=== PATIENT | female | born 1955 | race African-American/Black ===

== ENCOUNTER 2017-02-13 00:35 | Inpatient (IN) | payer MEDICARE ==
[2017-02-13 01:52] LABS: #Eosinphils 0.1 thou/uL (0.0-0.7); #Lymphocytes 2.2 thou/uL (1.20-3.40); #Monocytes 0.4 thou/uL (0.11-0.59); #Neutrophils 3.3 thou/uL (1.40-6.50); %Basophils 0.1 % (0.0-1.0); %Lymphocytes 36.1 % (21.0-51.0); %Monocytes 6.9 % (0.0-10.0); Hematocrit 37.8 % (36.0-47.0); Mean Platelet Volume 8.7 fL (7.4-10.4)
--- NOTE | 2017-02-13 03:55 | HP ---
DATE OF ADMISSION: 02/13/2017 PRIMARY CARE PHYSICIAN: Angelica Pedersen M.D. CODE STATUS: FULL CODE. CHIEF COMPLAINT: Abdominal discomfort with lower GI bleeding. HISTORY OF PRESENT ILLNESS: The patient is a 61-year-old female with diverticulosis, followed by Dr. Regulo Sheehan presented to the Emergency Room at [place] with bleeding per rectum that started yesterd ay morning. Over the last 12 hours, the patient developed abdominal discomfort followed by diarrhea. The first 3 episodes of diarrhea were watery without any blood. She then had 2 to 3 more episodes of diarrhea w hich had jose alejandro blood mixed with small amount of stool. The abdominal pain was crampy, intermittent, without any aggravating or relieving factor. She denied any nausea or vomiting. She felt lightheade d, dizzy without any syncope. No chest pain, palpitations, recent antibiotic use or fever reported. She had intermittent chills. She denies recent antibiotic use. In the Emergency Room at [place], her initial vital signs showed temperature 97.7, respiration of 18 , pulse rate of 77 with blood pressure 197/88 with O2 saturation 98% on room air. She received 500 m L of normal saline in the emergency room and was transferred to this facility. The case was discusse d with GI investigation manager Dr. Morel by the ER physician at [place]. PAST MEDICAL HISTORY: 1. Diverticulosis followed by Dr. Sheehan. 2. Hypertension. 3. Diabetes mellitus type 2. 4. History of rheumatoid arthritis. 5. Depression. 6. Hyperlipidemia. 7. Coronary artery disease, status post stent placement. PAST SURGICAL HISTORY: 1. Colonoscopy in the last 5 years per patient report, she is unable to recall the details. 2. Total abdominal hysterectomy with single oophorectomy. 3. Tubal ligation. ALLERGIES: The patient is allergic to SULFA. CURRENT HOME MEDICATIONS: The patient takes aspirin 81 mg daily. She is unable to recall the names and dosing of other medications. Per ER record, she is on hydrochlorothiazide, verapamil, lisinopril , glipizide, gabapentin, atenolol, Lipitor, and estradiol. SOCIAL HISTORY: The patient currently lives at home. No smoking, alcohol or drug use. She is indep endent of activities of daily living. She lives in [place]. FAMILY HISTORY: Mother at 49 after cardiac arrest. REVIEW OF SYSTEMS: The following complete review of systems was negative, unless otherwise mentioned in the HPI or below: Constitutional: Weight loss or gain, ability to conduct usual activities. Skin: Rash, itching. Eyes: Double vision, pain. ENT/Mouth: Nose bleeding, neck stiffness, pain, tenderness. Cardiovascular: Palpitations, dyspnea on exertion, orthopnea. Respiratory: Shortness of breath, wheezing, cough, hemoptysis, fever or night sweats. Gastrointestinal: Poor appetite, abdominal pain, heartburn, nausea, vomiting, constipation, or diarr hea. Genitourinary: Urgency, frequency, dysuria, nocturia. Musculoskeletal: Pain, swelling. Neurologic/Psychiatric: Anxiety, depression. Allergy/Immunologic: Skin rash, bleeding tendency. PHYSICAL EXAMINATION: VITAL SIGNS: As discussed above. GENERAL: A 61-year-old female in no apparent distress. No new episodes of GI bleeding since transfe r to this facility. HEENT: Head atraumatic, normocephalic. Sclerae anicteric. Moist mucous membrane, no oral lesion. Conjunctiva was slightly pale. NECK: Supple, no JVD, no carotid bruit. LUNGS: Clear to auscultation bilaterally. No wheezing or rales. HEART: S1, S2 present. Regular rate and rhythm. No heaves or pulsation. There were no significant murmurs noted. ABDOMEN: Soft, mild generalized tenderness mainly in the periumbilical region without any rebound, g uarding, no costovertebral angle tenderness. EXTREMITIES: No edema or calf tenderness. NEUROLOGIC: Grossly nonfocal, moves all four extremities. PSYCHIATRY: Alert, awake, oriented x3. SKIN: Warm and dry. LYMPH NODES: No palpable lymph nodes in the neck. PERIPHERAL VASCULAR: Radial pulses palpable bilaterally. MUSCULOSKELETAL: No joint swelling or tenderness. LABORATORY FINDINGS: CBC showed WBC of 6 with hemoglobin 13.4 at [place] and 13 at this facility, p latelet 177. PT, INR, PTT normal range. Chemistries showed sodium 137, potassium 3.8, chloride 103, bicarbonate 22, BUN 16, creatinine 1.071, glucose of 127. Stool for occult blood at [place] was po sitive. CT scan of the abdomen and pelvis by my review was consistent with diverticulitis. There wa s mild pelvic free fluid. Telemetry monitoring by my review showed sinus rhythm. IMPRESSION: 1. Acute diverticulitis. 2. Lower gastrointestinal bleeding secondary to #1. 3. Chronic kidney disease stage 2. 4. Diabetes mellitus type 2. 5. Hypertension. 6. Coronary artery disease, status post stent. 7. Hypertension, uncontrolled. 8. Hyperlipidemia. 9. History of rheumatoid arthritis. 10. Depression without any suicidal ideation. PLAN: The patient will be monitored on the medical floor. We will monitor H and H closely. Empiric antibiotics will be started. Dr. Sheehan will be consulted. Stool workup will be sent. Control blood pressure. Resume home medications once confirmed. Add p.r.n. antihypertensives. Consult dietitian for education on diverticular diet. Plan of care was discussed with the patient. She stated understanding. The patient will require 2 to 3 days for stabilization. Sliding scale for diabetes. Hold aspirin fo r now.
[2017-02-13] MEDS ORDERED: Ondansetron HCl/PF 4 MG/2 ML Vial IVP PRN (04:10)
[2017-02-13] MEDS ORDERED: Eucerin (Mineral Oil/Petrolatum,White) 30 gm Jar TOP PRN (04:10)
[2017-02-13] MEDS ORDERED: Insulin Regular 300 UNITS/3 ML VIAL SC PRN ×2 (04:10)
[2017-02-13] MEDS ORDERED: Calcium Carbonate 500 MG ChewTAB PO PRN (04:10)
[2017-02-13] MEDS ORDERED: Dextrose 5% in Water 1,000 ML IV PRN (04:10)
[2017-02-13] MEDS ORDERED: hydrALAZINE 20 MG/ML VIAL SLOW IVP PRN (04:10)
[2017-02-13] MEDS ORDERED: Dextrose 50% Abboject 50 ML SYRINGE SLOW IVP PRN (04:10)
[2017-02-13] MEDS ORDERED: Labetalol HCl 100 MG/20 ML VIAL SLOW IVP PRN (04:10)
[2017-02-13] MEDS ORDERED: Ondansetron ODT 4 MG TAB PO PRN (04:10)
[2017-02-13] MEDS ORDERED: Loratadine 10 MG TAB PO PRN (04:10)
[2017-02-13 04:26] VITALS: BMI 34.8
[2017-02-13 04:50] LABS: Iron 44 ug/dL (50-170)
[2017-02-13 07:20] LABS: Hematocrit 36.4 % (36.0-47.0)
--- NOTE | 2017-02-13 07:23 | CT ---
PRELIMINARY REPORT/[facility]/EMERGENCY AFTER HOURS PROCEDURE: EXAM: CT Abdomen and Pelvis With Intravenous Contrast EXAM DATE/TIME: 02/13/2017 1:43 AM CLINICAL HISTORY: 61 years old, female; Pain; Abdominal pain; Generalized; Prior surgery; Patient HX: Betina presents to e d as transfer from another facility for gi bleed. Pt reports sudden onset at 5am. Pt reports abdominal cramping and reports more than 10 episodes of bloody bowel movements. Pt denies HX of orquidea lar symptoms. Pt reports having a colonoscopy in 2011 and reports everything "was good". Pt denies re cent antibiotic use or recent travel. Pt denies any urinary symptoms, fever, chest pain, or SOB. TECHNIQUE: Axial computed tomography images of the abdomen and pelvis with intravenous contrast. Coronal reformatted images were created and reviewed. CONTRAST: 95 mL of isovue 370 administered intravenously. COMPARISON: No relevant prior studies available. FINDINGS: Lower thorax: No acute findings. ABDOMEN: Liver: Subcentimeter hepatic hypodensity, suspect cyst. Gallbladder and bile ducts: Unremarkable. No calcified stones. No ductal dilation. Pancreas: Unremarkable. No mass. No ductal dilation. Spleen: Unremarkable. No splenomegaly. Adrenals: Unremarkable. No mass. Kidneys and ureters: Unremarkable. No solid mass. No hydronephrosis. Stomach and bowel: Mild-moderate descending colonic wall thickening and inhomogeneity of the paracoli c fat. No obstruction. Appendix: Visualized portions of appendix appear normal. PELVIS: Bladder: Unremarkable. No mass. Reproductive: Uterus is not identified. ABDOMEN and PELVIS: Intraperitoneal space: Mild pelvic free fluid. No free air. Bones/joints: Chronic degenerative changes of the lumbar spine. No acute fracture. No dislocation. Soft tissues: Unremarkable. Vasculature: Chronic atherosclerotic calcification of the vasculature. No abdominal aortic aneurysm. Lymph nodes: Unremarkable. No enlarged lymph nodes. IMPRESSION: 1. Findings most suspicious for descending colonic inflammation - colitis. 2. Mild pelvic free fluid. Thank you for allowing us to participate in the care of your patient. Dictated and Authenticated by: Jesus Espino MD 02/13/2017 2:35 AM Central Time ([place] & [place]) FINAL REPORT ABDOMEN AND PELVIS CT WITH CONTRAST: FINDINGS/IMPRESSION: I agree with the preliminary interpretation provided above. No evidence to indicate left hemicolitis. Correlate for infectious inflammatory ischemic etiologies . Upon resolution of acute symptoms, recommend follow-up with colonoscopy to further evaluate. Small hepatic hypodensity too small to further characterize. Mild free pelvic fluid.
[2017-02-13] MEDS: Famotidine 20 MG TAB PO SCH ×2 (08:09→20:36)
[2017-02-13] MEDS ORDERED: ISOVUE-370 76%-LOCM 1 ML ONE (17:23)
[2017-02-13] MEDS: Sodium Chloride 0.9% 1,000 ML IV SCH (17:45)
--- NOTE | 2017-02-13 23:31 | CON ---
REASON FOR CONSULTATION: 02/13/2017 REASON FOR CONSULTATION: Bloody diarrhea. HISTORY OF PRESENT ILLNESS: Ms. Martinez is a very pleasant 61-year-old female, who reports she was in normal state of health when yesterday morning she, about 9, started feeling the nh ed to have a bowel movement. She had some cramping on her left side and then subsequently had 3 loos e diarrheal stools associated with severe cramping and some diaphoresis. Her fourth stool was bloody , the fifth and sixth were bloody, and then about 9 it stopped for a few hours. Then it began again and she had multiple loose stools that were bloody with severe cramping and she ended up going to the emergency room at [facility]. There she was found hemodynamically stable. Her labs w ere notable for white count of 6, hemoglobin 13. They apparently performed a CAT scan there that amanda wed some inflammation of the descending colon. The ER doctor called me for an opinion of that at [place] t time I was not there, seeing the patient, but suggested to them the history sounded like pretty typ ical for ischemic colitis. Patient was admitted here and has not been started on any medications or IV fluids. Some stool studies have been sent. The patient states she still has a quite a bit of lef t-sided abdominal pain. She has no fever or chills. She has had a few loose stools here. The bleed ing seems to have lessened. PAST MEDICAL HISTORY: Notable for diabetes and hypertension. She has a history of rheumatoid arthri tis, depression, hyperlipidemia, coronary artery disease. PAST SURGICAL HISTORY: Patient states she had a colonoscopy in 2011, which was normal. She had an E GD for nausea and vomiting with H. pylori, which was treated in 04/[address] Regulo Sheehan; total abdo avila hysterectomy with oophorectomy and tubal ligation. FAMILY HISTORY: Mother at age 49 with cardiac event. Her brother and her father had colon canc er. She denies any other cancers in the family. REVIEW OF SYSTEMS: Negative for rashes, myalgias, or arthralgias. No recent antibiotics. She does state that she started taking a new medication recently, gabapentin. MEDICATIONS: Presently here Tylenol, DuoNeb, Tums, Pepcid, , hydralazine, insulin, labetalol. PHYSICAL EXAMINATION: VITAL SIGNS: Temperature is 98, pulse 81, blood pressure 125/90-129/83. LUNGS: Clear. CARDIOVASCULAR: Heart regular without clicks or murmurs. ABDOMEN: Soft. There is some tenderness in the left lower quadrant, but no rebound or guarding. EXTREMITIES: No clubbing, cyanosis, or edema. LABORATORY AND X-RAY FINDINGS: The only lab today is hemoglobin of 12, which was 13.2. Platelet cou nt early this morning was 106. Comprehensive metabolic profile yesterday was normal on 02/12/2017. ASSESSMENT: Colitis, likely ischemic. RECOMMENDATIONS: I would start IV fluids, control blood pressure, placed her on clear liquid diet. She does have mild tenderness in the left lower quadrant. I do not think at this point in time she n eeds IV antibiotics. It should be reasonable to get some stool studies to make sure she did not have an infectious colitis with invasive organism. If she continues to improve, she probably could go ho me tomorrow and then probably needs to follow up for outpatient colonoscopy.
[2017-02-14] MEDS: Sodium Chloride 0.9% 1,000 ML IV SCH ×2 (02:02→06:54)
[2017-02-14 04:36] LABS: #Eosinphils 0.2 thou/uL (0.0-0.7); #Lymphocytes 1.7 thou/uL (1.20-3.40); #Monocytes 0.3 thou/uL (0.11-0.59); #Neutrophils 2.6 thou/uL (1.40-6.50); %Eosinophils 3.5 % (0.0-10.0); %Lymphocytes 34.8 % (21.0-51.0); %Monocytes 7.2 % (0.0-10.0); Hematocrit 35.8 % (36.0-47.0); Mean Platelet Volume 8.9 fL (7.4-10.4); Red Blood Cell (RBC) Count 3.97 mill/uL (4.20-5.40); White Blood Cell (WBC) Count 4.8 thou/uL (4.8-10.8)
[2017-02-14 04:49] LABS: Anion Gap 11 mmol/L (10-20); BUN (Urea Nitrogen) 10 mg/dL (9.8-20.1); BUN/Creatinine Ratio 11.24; Calc. Creatinine Clearance 95 mL/min (70-130); Calcium 8.4 mg/dL (7.8-10.44); Carbon Dioxide 23 mmol/L (23-31); Chloride 108 mmol/L (98-107); Estimated GFR-MDRD 78; Magnesium 1.6 mg/dL (1.6-2.6); Phosphorus 2.5 mg/dL (2.3-4.7)
[2017-02-14] MEDS: Acetaminophen 325 MG TAB PO PRN (06:57)
[2017-02-14] MEDS: Famotidine 20 MG TAB PO SCH ×2 (08:11→20:16)
--- NOTE | 2017-02-14 11:05 | PDOC.PN ---
- Subjective Encounter Start Date: 02/14/17 Encounter Start Time: 09:45 -: old records requested/rev Pt seen and exmained, i have assumed care of this patient. Chart reviewed in its entirety. This is my first visit with this patient PT eating okay, increased to soft diet earlier. No F/C, no n/V/D/C, no CP or sOB. Small amount of BRBPR per patient earlier this morning. subramanian still crampy , slightly tender to right lateral side. aleta po. urinating well. Seen by GI, plan to do outpatient coloscopy later 10 point ROS performed and neg for all systems except as per HPI - Objective Resuscitation Status: Resuscitation Status FULL:Full Resuscitation MAR Reviewed: Yes Vital Signs & Weight: Vital Signs (12 hours) Temp Pulse Resp BP BP Pulse Ox 02/14/17 08:35 97.7 F 65 16 142/76 H 95 02/14/17 08:00 97.7 F 65 16 95 02/14/17 04:00 98.5 F 75 20 143/89 H 96 I&O: 02/13/17 02/14/17 02/15/17 06:59 06:59 06:59 Intake Total 320 2600 Balance 320 2600 Result Diagrams: 02/14/17 03:19 02/14/17 03:19 Additional Labs: Accuchecks 02/14/17 02/13/17 02/13/17 04:05 19:08 16:33 POC Glucose 105 149 H 86 02/13/17 11:54 POC Glucose 115 H Radiology Reviewed by me: Yes EKG Reviewed by me: Yes Phys Exam - Physical Examination Constitutional: NAD HEENT: PERRLA, moist MMs, sclera anicteric, oral pharynx no lesions Neck: no nodes, no JVD, supple, full ROM Respiratory: no wheezing, no rales, no rhonchi, clear to auscultation bilateral Cardiovascular: RRR, no significant murmur, no rub Gastrointestinal: soft, no distention, positive bowel sounds mildly lender to right side Musculoskeletal: no edema, pulses present Neurological: non-focal, normal sensation, moves all 4 limbs Lymphatic: no nodes Psychiatric: normal affect, A&O x 3 Skin: no rash, normal turgor, cap refill <2 seconds Dx/Plan (1) LGI bleed Code(s): K92.2 - GASTROINTESTINAL HEMORRHAGE, UNSPECIFIED Status: Acute Comment: episodic, descirbed as bright rec. with IV fluids, hgb 12.6 to 13.2 to 12.8 to 11.9 Seen by GI. planning outpatient endoscopy (2) Acute diverticulitis Code(s): K57.92 - DVTRCLI OF INTEST, PART UNSP, W/O PERF OR ABSCESS W/O BLEED Status: Acute Comment: CT negative, afebrile, WBC imrpoving off of abx, hold for now. follow up on GI recommendations (3) HTN (hypertension) Code(s): I10 - ESSENTIAL (PRIMARY) HYPERTENSION Status: Acute (4) CAD (coronary artery disease) Code(s): I25.10 - ATHSCL HEART DISEASE OF [place] CORONARY ARTERY W/O ANG PCTRS Status: Chronic Qualifiers: Coronary Disease-Associated Artery/Lesion type: [place] artery [place] vs. transplanted heart: [place] heart Associated angina: without angina Qualified Code(s): I25.10 - Atherosclerotic heart disease of [place] coronary artery without angina pectoris (5) DM2 (diabetes mellitus, type 2) Status: Chronic Qualifiers: Diabetes mellitus complication status: without complication Diabetes mellitus assisted insulin use: without barrel turner use Qualified Code(s): E11.9 - Type 2 diabetes mellitus without complications - Plan cont current plan of care, out of bed/ambulate * .
--- NOTE | 2017-02-14 16:48 | PRG ---
DATE OF SERVICE: 02/14/2017 SUBJECTIVE: Ms. Martinez is doing well. No further rectal bleeding except for one small scant stool today. She has less pain. PHYSICAL EXAMINATION: VITAL SIGNS: Temperature is 97, pulse 81, blood pressure 146/82. GASTROINTESTINAL: Left upper quadrant is mildly tender without rebound or guarding. LABORATORY STUDIES: Hemoglobin is 11.9 down from 12.8, it was 13 on admission. Hemoglobin was 4.8. Comprehensive metabolic profile normal. ASSESSMENT: Ischemic colitis, resolving. RECOMMENDATIONS: I think we can Hep-Lock her IV and we can advance her diet to soft.
[2017-02-14] MEDS: Gabapentin 300 MG CAP PO SCH (20:16)
[2017-02-15 05:31] LABS: Anion Gap 8 mmol/L (10-20); BUN (Urea Nitrogen) 11 mg/dL (9.8-20.1); BUN/Creatinine Ratio 12.36; Calc. Creatinine Clearance 95 mL/min (70-130); Calcium 8.6 mg/dL (7.8-10.44); Carbon Dioxide 24 mmol/L (23-31); Chloride 110 mmol/L (98-107); Estimated GFR-MDRD 78; Phosphorus 2.4 mg/dL (2.3-4.7)
[2017-02-15 05:34] LABS: #Eosinphils 0.2 thou/uL (0.0-0.7); #Lymphocytes 1.7 thou/uL (1.20-3.40); #Monocytes 0.3 thou/uL (0.11-0.59); #Neutrophils 1.9 thou/uL (1.40-6.50); %Basophils 0.4 % (0.0-1.0); %Eosinophils 4.2 % (0.0-10.0); %Lymphocytes 41.9 % (21.0-51.0); %Monocytes 7.4 % (0.0-10.0); Hematocrit 35.3 % (36.0-47.0); Mean Platelet Volume 8.9 fL (7.4-10.4); Red Blood Cell (RBC) Count 3.93 mill/uL (4.20-5.40)
[2017-02-15] MEDS: Atenolol 25 MG TAB PO SCH (08:09)
[2017-02-15] MEDS: Bupropion 150 MG SR TAB PO SCH (08:09)
[2017-02-15] MEDS: Famotidine 20 MG TAB PO SCH ×2 (08:09→21:10)
[2017-02-15] MEDS: Hydrochlorothiazide 25 MG TAB PO SCH (08:09)
[2017-02-15] MEDS: Citalopram 20 MG TAB PO SCH ×2 (08:10→08:27)
[2017-02-15] MEDS: Lisinopril 5 MG TAB PO SCH (08:10)
[2017-02-15] MEDS: Acetaminophen 325 MG TAB PO PRN ×2 (08:21→19:09)
[2017-02-15] MEDS: Gabapentin 300 MG CAP PO SCH ×2 (08:27→21:10)
--- NOTE | 2017-02-15 11:33 | PDOC.PN ---
- Subjective Encounter Start Date: 02/15/17 Encounter Start Time: 10:05 Pt seen by LINDSEY riley, notes reviewed. no further GI bleeding noted by pt, small BM last evening. did well overngiht, nauseated this morning, but no vomiting. kept down breakfast, no F/C, no D/C, no CP or SOB, no GI bleeding. 10 point ROS performed and neg for all systems except as per HPI - Objective Resuscitation Status: Resuscitation Status FULL:Full Resuscitation MAR Reviewed: Yes Vital Signs & Weight: Vital Signs (12 hours) Temp Pulse Resp BP BP BP BP 02/15/17 08:25 97.7 F 64 18 135/84 02/15/17 08:10 77 141/83 H 02/15/17 08:09 77 141/83 H 02/15/17 08:00 97.7 F 64 18 02/15/17 05:00 81 150/86 H 141/83 H 02/15/17 04:26 BP Pulse Ox 02/15/17 08:25 97 02/15/17 08:10 02/15/17 08:09 02/15/17 08:00 97 02/15/17 05:00 141/81 H 02/15/17 04:26 97 I&O: 02/14/17 02/15/17 02/16/17 06:59 06:59 06:59 Intake Total 2600 300 Balance 2600 300 Result Diagrams: 02/15/17 04:26 02/15/17 04:26 Additional Labs: Accuchecks 02/15/17 02/14/17 02/14/17 04:59 19:53 16:26 POC Glucose 108 119 H 107 02/14/17 11:01 POC Glucose 135 H Phys Exam - Physical Examination Constitutional: NAD HEENT: PERRLA, moist MMs, sclera anicteric, oral pharynx no lesions Neck: no nodes, no JVD, supple, full ROM Respiratory: no wheezing, no rales, no rhonchi, clear to auscultation bilateral Cardiovascular: RRR, no significant murmur, no rub Gastrointestinal: soft, non-tender, no distention, positive bowel sounds Musculoskeletal: no edema, pulses present Neurological: non-focal, normal sensation, moves all 4 limbs Lymphatic: no nodes Psychiatric: normal affect, A&O x 3 Skin: no rash, normal turgor, cap refill <2 seconds Dx/Plan (1) LGI bleed Code(s): K92.2 - GASTROINTESTINAL HEMORRHAGE, UNSPECIFIED Status: Resolved Comment: episodic, descirbed as bright rec. with IV fluids, hgb 12.6 to 13.2 to 12.8 to 11.9 Seen by GI. planning outpatient endoscopy. No further bleeding noted, H/H 11.9 and unchanged from yesterday (2) Acute diverticulitis Code(s): K57.92 - DVTRCLI OF INTEST, PART UNSP, W/O PERF OR ABSCESS W/O BLEED Status: Ruled-out Comment: CT negative, afebrile, WBC imrpoving off of abx, hold for now. follow up on GI recommendations. has diverticulosis, but no evidence of -itis. (3) HTN (hypertension) Code(s): I10 - ESSENTIAL (PRIMARY) HYPERTENSION Status: Chronic Qualifiers: Hypertension type: essential hypertension Qualified Code(s): I10 - Essential (primary) hypertension (4) CAD (coronary artery disease) Code(s): I25.10 - ATHSCL HEART DISEASE OF [place] CORONARY ARTERY W/O ANG PCTRS Status: Chronic Qualifiers: Coronary Disease-Associated Artery/Lesion type: [place] artery [place] vs. transplanted heart: [place] heart Associated angina: without angina Qualified Code(s): I25.10 - Atherosclerotic heart disease of [place] coronary artery without angina pectoris (5) DM2 (diabetes mellitus, type 2) Status: Chronic Qualifiers: Diabetes mellitus complication status: without complication Diabetes mellitus petroleum terminal plant operator insulin use: without petroleum terminal plant operator use Qualified Code(s): E11.9 - Type 2 diabetes mellitus without complications - Plan cont current plan of care, out of bed/ambulate * . will watch today, discuss with GI later today. IF doing better form nausea standpoint, could discharge later today if ok with GI
--- NOTE | 2017-02-15 17:11 | PRG ---
DATE OF SERVICE: 02/15/2017 SUBJECTIVE: Ms. Martinez is feeling better, but she had some nausea this morning, although she has ea ten a regular plate of food today. Her left upper quadrant pain has resolved. She has multiple fami ly members at the bedside, is talking, visiting, and is in no distress. OBJECTIVE: VITAL SIGNS: Temperature 97.9, respirations 18, blood pressure 161/90. ABDOMEN: Soft and nontender in left upper quadrant. LABORATORY STUDIES: White count 4, hemoglobin 11.9, platelet count 146. Phosphorus normal, albumin 3. ASSESSMENT AND PLAN: Ischemic colitis, resolving. The patient will go home later this evening or to [facility]. Follow up in our office in 1-2 weeks. She is going to need an outpatient colonoscopy with marko casiano to her family history of colorectal cancer.
[2017-02-16] MEDS: Citalopram 20 MG TAB PO SCH (07:44)
[2017-02-16] MEDS: Gabapentin 300 MG CAP PO SCH (07:45)
[2017-02-16] MEDS: Atenolol 25 MG TAB PO SCH (07:48)
[2017-02-16] MEDS: Lisinopril 5 MG TAB PO SCH (07:49)
[2017-02-16] MEDS: Famotidine 20 MG TAB PO SCH (07:49)
[2017-02-16] MEDS: Hydrochlorothiazide 25 MG TAB PO SCH (07:50)
[2017-02-16 08:48] VITALS: BP 175/90; TEMP 97.8
[2017-02-16] MEDS: Bupropion 150 MG SR TAB PO SCH (10:05)
--- NOTE | 2017-02-16 11:27 | DIS ---
DATE OF ADMISSION: 02/13/2017 DATE OF DISCHARGE: 02/16/2017 DISCHARGE DIAGNOSES: 1. History of ischemic colitis. 2. History of diverticulosis. 3. Abdominal pain. 4. Rectal bleeding, likely diverticular in nature. 5. Type 2 diabetes mellitus without complication. 6. Hypertension. CONSULTATIONS: Gastroenterology, Dr. Morel. PROCEDURES: None. HISTORY AND PHYSICAL: Ms. Martinez is a 61-year-old female with the above history wh o presented to the emergency department for complaints of abdominal pain and bright red blood per rec dacia. She was seen and evaluated there, a CT scan was done that showed a small area of acute colitis, hemog lobin was normal and she was subsequently admitted to our service. The patient was seen and examined by Dr. Alcantara. Her vital signs on admission showed a blood pressure of 197/80, but otherwise stable. She had normal saline in the emergency department and GI was consu lted. Overnight 02/13/2017 to 02/14/2017, I took over the case. The patient did well overnight, had anothe r small bowel movement with some bright red blood per rectum. She was urinating well and was seen by GI. His plan was to do outpatient colonoscopy later. The area of "colitis" on her CAT scan was rel atively small and she did have a history of ischemic colitis, he was not sure of the current cause. She was having some crampy abdominal pain. She was continued on IV fluids and pain control. Her t was advanced. Overnight 02/14/2017 to 02/15/2017, she was feeling better, but still somewhat nauseated. Her hemogl obin and hematocrit remained stable. She had no further bleeding. Due to her nausea, we watched her another day. Overnight, the nausea subsided and this morning she is feeling back to her baseline an d stable to discharge with outpatient followup. The patient was seen and examined on the day of . Discharge plan and disposition were discussed with the patient face to face at the bedside. DISCHARGE MEDICATIONS: 1. Atenolol 25 mg daily. 2. Bupropion HCL 150 mg p.o. q.a.m. 3. Celexa 40 mg daily. 4. Cymbalta 30 mg daily. 5. Estradiol 1 mg p.o. daily. 6. Gabapentin 300 mg p.o. b.i.d. 7. Glipizide 2.5 mg p.o. daily. 8. HCTZ 25 mg daily. 9. Detrol 5 mg daily. FOLLOWUP APPOINTMENTS Dr. Morel in 1-2 weeks. He is planning to do an outpatient colonoscopy for r egular screening. Primary care physician, Angelica Pedersen M.D. within a week. DISCHARGE ACTIVITY: As tolerated. DISCHARGE DIET: Soft, heart healthy diet was recommended. DISCHARGE CONDITION: Good. DISPOSITION: The patient will be discharged home via private vehicle for outpatient followup.
== END 2017-02-16 15:00 | disposition home or self-care (01) | DRG 378 ==
LOC: ERS 00:35 → T4-A 03:59
PROVIDERS: ADMIT Internal Medicine; ATTEND Internal Medicine
DX: K57.91 Diverticulosis of intestine, part unspecified, without perforation or abscess with bleeding (principal); K55.9 Vascular disorder of intestine, unspecified; E11.22 Type 2 diabetes mellitus with diabetic chronic kidney disease; I12.9 Hypertensive chronic kidney disease with stage 1 through stage 4 chronic kidney disease, or unspecified chronic kidney disease; N18.2 Chronic kidney disease, stage 2 (mild); I25.10 Atherosclerotic heart disease of native coronary artery without angina pectoris; Z95.5 Presence of coronary angioplasty implant and graft; E78.5 Hyperlipidemia, unspecified; M06.9 Rheumatoid arthritis, unspecified; F32.9 Major depressive disorder, single episode, unspecified
CPT/HCPCS: 36415; 36416; 74177; 80069; 82728; 83540; 83550; 83735; 85025; 86850; 86900; 86901; 87045; 87046; 87324; 87449; 87899

== ENCOUNTER 2017-09-14 09:07 | Outpatient (CLI) | payer MEDICARE | END 2017-09-14 09:08 | disposition home or self-care (01) | LOC: BICMAMMO 09:07 | PROVIDERS: ATTEND Family Medicine | DX: Z12.31 Encounter for screening mammogram for malignant neoplasm of breast (principal); Z80.3 Family history of malignant neoplasm of breast | CPT/HCPCS: 77063; 77067 ==

== ENCOUNTER 2018-07-04 21:27 | Inpatient (IN) | payer MEDICARE ==
[2018-07-04] MEDS ORDERED: Aspirin Chewable 81 MG TAB ONE (22:51)
[2018-07-04] MEDS ORDERED: hydrALAZINE 20 MG/ML VIAL ONE (23:16)
[2018-07-04 23:53] LABS: CKMB 1.1 ng/mL (0-6.6)
[2018-07-05 05:19] LABS: Troponin I 0.044 ng/mL (< 0.028)
--- NOTE | 2018-07-05 09:14 | PDOC.FPRHP ---
- History of Present Illness Chief Complaint: Shortness of breath for 1 week History of Present Illness: 62F seen here for SOB of 1 week. Associated with 8lb weight gain, LE edema, PND , and cough. She stated she was in usual state of health before this occurred. It happened insidiously and she is unaware of any triggering factors. Symptom steadily worsened over a week which prompted her to seek care. She describes her SOB as feeling like she was "drowning". It is relieved with rest and by propping herself up to sleep. Worsen with exertion and sleeping flat. She specifically denies fever above 100.4F, rhinorrhea, hemoptysis, chest pain, new muscle weakness. ED Course: In ER, has received 40 mg of IV Lasix, 10 mg HCTZ IV and Aspirin 324 mg. - Allergies/Adverse Reactions Allergies Allergy/AdvReac Type Severity Reaction Status Date / Time Sulfa (Sulfonamide Allergy Severe Verified 07/05/18 11:15 Antibiotics) - Home Medications Medication Instructions Recorded Confirmed Type Atenolol 25 mg PO DAILY 02/13/17 07/05/18 History Bupropion HCl [buPROPion HCl XL] 150 mg PO QAM 02/13/17 07/05/18 History Estradiol 1 mg PO DAILY 02/13/17 07/05/18 History Hydrochlorothiazide 25 mg PO DAILY 02/13/17 07/05/18 History Lisinopril [Zestril] 5 mg PO DAILY 02/13/17 07/05/18 History glipiZIDE [glipiZIDE ER] 2.5 mg PO DAILY 02/13/17 07/05/18 History Aspirin 81 mg PO DAILY 07/05/18 07/05/18 History Atorvastatin Calcium 20 mg PO HS 07/05/18 07/05/18 History Naproxen 1 tab PO BID PRN 07/05/18 07/05/18 History Verapamil HCl 1 tab PO DAILY 07/05/18 07/05/18 History - History PMHx: Depression, CAD, DM2 with neuropathy, HTN, HLD, "rheumatoid" arthritis - Patient state her pcp told her to take OTC for this PSHx: Total hysterectomy 2/2 to fibroid, 1x cardiac stent in 2002 FHx: HTN, HLD Social: Denies ever using alcohol, tobacco, drug. - Review of Systems General: reports: weight/appetite/sleep changes (Can't sleep flat), fatigue. denies: fever/chills ENT: denies: nasal congestion, rhinorrhea Respiratory: reports: cough, shortness of breath, exercise intolerance. denies : congestion Cardiovascular: reports: edema, orthopnea. denies: chest pain, palpitation Gastrointestinal: reports: nausea. denies: vomiting, diarrhea, constipation, abdominal pain Genitourinary: denies: dysuria Skin: denies: rashes, itching Musculoskeletal: reports: pain (Complains of chronic arthritic pain), arthritis/ arthralgias Neurological: denies: syncope, weakness Psychological: reports: depression - Vital signs BP: [186/99] HR: [81] RR: []16 Tmax: [97.9] Pox: [98]% on [RA] Wt: [90kg] - Physical Exam Constitutional: NAD, awake, alert and oriented, well developed HEENT: conjunctiva clear, no scleral icterus Neck: supple, trachea midline Heart: RRR, normal S1/S2, no murmurs/rubs/gallops -Heart: Trace edema present in lower extremities Lungs: CTAB, no respiratory distress, good air movement, no rales/rhonchi Abdomen: soft, non-tender, bowel sounds present, no masses/distention Musculoskeletal: normal structure, ROM grossly normal Neurological: no focal deficit, CN II-XII intact, normal sensation Skin: no rash/lesions, good turgor, no jaundice Heme/Lymphatic: no unusual bruising or bleeding, no purpura, no petechia Psychiatric: normal mood and affect, good judgment and insight, intact recent and remote memory -Psychiatric: Pleasant to talk to. FMR H&P: Results - Labs Result Diagrams: 07/06/18 04:59 07/06/18 04:59 Lab results: CK-MB (CK-2) 1.1 ng/mL (0-6.6) 07/04/18 23:01 Additional comment: Most labwork done at outside ER Pertinent Lab WBC 5.9, 55% neutrophil Hgb 11.7, MCV 86.6 Plt 210 D-dimer .5 Na 140, K 4.3, Cl 106, Bicarb 23, BUN 16, Cr 0.93 Trop: 0.021, 0.031, 0.05 BNP 607 CRP 2.97 - Radiology Interpretation Chest x-ray Status: image reviewed by me, report reviewed by me (Costophrenic angle with no obvious effusion. Vascular prominence, possible edema.) Other Status: image reviewed by me, report reviewed by me (CT Brain: No obvious acute abnormalities CTA Chest: No PE, coronary calcification, decreased cardiac output/reflux, pulm edema present) FMR H&P: A/P - Problem List (1) Acute systolic CHF (congestive heart failure), NYHA class 2 Current Visit: Yes Status: Acute Code(s): I50.21 - ACUTE SYSTOLIC ( CONGESTIVE) HEART FAILURE Assessment and Plan: BNP elevated at 607, imaging study suggesting pulm edema, patient hx of weight gain/edema with relief once lasix was given Likely CHF. Plan, echocardiogram, continue lasix at 40 IV BID, fluid restriction to 1500 ml , consult HF clinic. Consider addition of b-shane when not in acute exacerbation. (2) Hypertensive urgency Current Visit: Yes Status: Acute Code(s): I16.0 - HYPERTENSIVE URGENCY Assessment and Plan: BP was over 180 systolic and patient with known CAD disease Will start with low dose carvedilol to treat for this and new onset CHF. Goal of no more then 25 %BP reduction. (3) DM2 (diabetes mellitus, type 2) Current Visit: No Status: Chronic Qualifiers: Diabetes mellitus usp insulin use: without financial services agent use Diabetes mellitus complication status: with neurologic complications Assessment and Plan: DM2 with neuropathy. Patient appears to be on glipizide alone Consider adding metformin on dc. SSI at this time. Will control with basal insulin as patient recently had contrast study. (4) Normocytic anemia Current Visit: Yes Status: Acute Code(s): D64.9 - ANEMIA, UNSPECIFIED Assessment and Plan: Noted incidentally, Hgb 11.7. Not at transfusion threshold, possible from DM2 chronic disease. Will monitor and treat if needed. (5) Depression Current Visit: Yes Status: Acute Code(s): F32.9 - MAJOR DEPRESSIVE DISORDER , SINGLE EPISODE, UNSPECIFIED Assessment and Plan: Chronic issue Continue [facility] home med (6) CAD (coronary artery disease) Current Visit: No Status: Chronic Code(s): I25.10 - ATHSCL HEART DISEASE OF [place] CORONARY ARTERY W/O ANG PCTRS Qualifiers: Coronary Disease-Associated Artery/Lesion type: [place] artery [place] vs. transplanted heart: [place] heart Associated angina: without angina Qualified Code(s): I25.10 - Atherosclerotic heart disease of [place] coronary artery without angina pectoris Assessment and Plan: Hx of cardiac stent x1 and calcification on today's CTA Plan to manage with BP and lipid control. (7) HTN (hypertension) Current Visit: No Status: Chronic Code(s): I10 - ESSENTIAL (PRIMARY) HYPERTENSION Qualifiers: Hypertension type: essential hypertension Qualified Code(s): I10 - Essential (primary) hypertension Assessment and Plan: BP is currently elevated for this chronic issue. Will continue home med. Will add a betablocker, consider carvedilol due to likely new CHF. (8) Arthritis Current Visit: Yes Status: Acute Code(s): M19.90 - UNSPECIFIED OSTEOARTHRITIS, UNSPECIFIED SITE Assessment and Plan: Chronic issue Will treat symptomatically while here. Patient indicate it might be rheumatoid. Advise follow up with PCP for management. (9) Hyperlipidemia associated with type 2 diabetes mellitus Current Visit: Yes Status: Acute Code(s): E11.69 - TYPE 2 DIABETES MELLITUS WITH OTHER SPECIFIED COMPLICATION; E78.5 - HYPERLIPIDEMIA, UNSPECIFIED Assessment and Plan: On atorvastatin 10 apparently. Plan to obtain lipid panel, consider increasing to atorvastatin 40 mg due to DM2. (10) Elevated troponin Current Visit: Yes Status: Acute Code(s): R74.8 - ABNORMAL LEVELS OF OTHER SERUM ENZYMES Assessment and Plan: Patient without complaint of chest pain. Trop noted to be in indeterminate range. EKG shows no obvious ST change suggesting ischemia Elevated trop is likely to be related to demand during this CHF episode. FMR H&P: Upper Level - Pertinent history THIS NOTE WAS DONE ELECTIVE WITH SOUND SERVICE. THIS IS NOT A [facility] PATIENT - Plan Date/Time: 07/05/18 0910 I have evaluated this patient and agree with findings/plan as outlined by bakery pastry internship resident Jb Turner. Reviewed all hx, PE, labs, X-rays and treatment given in the ED. Physical exam with minimal basilar crackles, CV S1, S2, Abd soft and mild LE edema. Continue Lasix 40mg IV BID, 2D echo for EF and wall motion analysis, Consult Cardiology, ASA, Lipitor. Agree with Jb Turner's documented Hx, PE and A/P as outlined above.
[2018-07-05] MEDS ORDERED: Dextrose 5% in Water 1,000 ML IV PRN (10:14)
[2018-07-05] MEDS ORDERED: Dextrose 50% Abboject 50 ML SYRINGE SLOW IVP PRN (10:14)
[2018-07-05] MEDS ORDERED: Calcium Carbonate 500 MG ChewTAB PO PRN (10:14)
[2018-07-05] MEDS ORDERED: HumaLOG 300 UNITS/3 ML VIAL SC PRN (10:14)
[2018-07-05] MEDS ORDERED: Ondansetron ODT 4 MG TAB PO PRN ×2 (10:30→11:09)
[2018-07-05] MEDS ORDERED: Guaifenesin DM 100-10/5 ML UDCUP PO PRN (10:30)
[2018-07-05] MEDS ORDERED: Benzonatate 100 MG CAP PO PRN (11:09)
[2018-07-05] MEDS ORDERED: Nitroglycerin 0.4 MG TAB (25 Tab Bottle) SL PRN (11:09)
[2018-07-05] MEDS ORDERED: Ondansetron PF 4 MG/2 ML Vial IVP PRN (11:09)
[2018-07-05] MEDS ORDERED: cloNIDine 0.1 MG TAB PO PRN (11:09)
[2018-07-05] MEDS ORDERED: hydrALAZINE 20 MG/ML VIAL SLOW IVP PRN (11:10)
[2018-07-05 11:16] VITALS: BMI 32.1
[2018-07-05 13:18] LABS: Cardiac Risk 2.9 (Less than 4.5)
[2018-07-05] MEDS ORDERED: Naproxen 500 MG TAB PO PRN (13:39)
[2018-07-05] MEDS: Furosemide 40 MG/4 ML VIAL SLOW IVP SCH (15:39)
[2018-07-05] MEDS: Atorvastatin Calcium 40 MG TAB PO SCH (20:08)
--- NOTE | 2018-07-06 01:26 | CON ---
DATE OF CONSULTATION: HISTORY OF PRESENT ILLNESS: Sujey Martinez is a 62-year-old black female admitted with increased shortness of breath. She was hospitalized here in November 2002 and was evaluated for dyspnea. Echocardiogram revealed ejection fraction of 35% to 40%. It was felt that she had acute pulmonary edema. During that admission, she ultimately underwent cardiac catheterization, which revealed catheterization ejection fraction of 40% to 45% and normal coronary arteries. An echo in August of 2011 revealed ejection fraction of 50% to 55% with [id number] tricuspid regurgitation, and moderate mitral regurgitation. She now presents complaining of increased shortness of breath, dyspnea on exertion, cough, and lower extremity edema. Also over the last week, she has had nightly episodes of PND. When she is short of breath, when she awakens at night or when she exerts herself during the day, she will have a pressure feeling in her chest. These symptoms resolve in 4-5 minutes with rest. PAST MEDICAL HISTORY: Normal coronary arteries in 2002, diabetes, hypertension, hyperlipidemia, arthritis, depression. MEDICATIONS: At home include: 1. Aspirin 81 daily. 2. Atenolol 25 mg daily. 3. Atorvastatin 20 at bedtime. 4. Bupropion 150 q.a.m. 5. Estradiol 1 mg daily. 6. Glipizide 2.5 mg daily. 7. Hydrochlorothiazide 25 daily. 8. Lisinopril 5 mg daily. 9. Naproxen 1 b.i.d. 10. Verapamil 80 mg daily. ALLERGIES: SULFA. PAST SURGICAL HISTORY: Hysterectomy. SOCIAL HISTORY: She does not smoke or drink. FAMILY HISTORY: Mother had myocardial infarction. REVIEW OF SYSTEMS: A 10-point review of systems unremarkable except as noted above. PHYSICAL EXAMINATION: VITAL SIGNS: Blood pressure of 131/62, pulse of 71. HEENT: PERRL. NECK: Supple. CHEST: Clear. CARDIAC: S1 and S2 normal without any S3, S4 or murmurs. Carotid upstrokes normal without bruits. ABDOMEN: Normal bowel sounds without tenderness or organomegaly. Abdomen is mildly obese. EXTREMITIES: Revealed trace pretibial edema. NEUROLOGIC: Grossly intact. SKIN: Warm and dry. IMAGIN. EKG revealed normal sinus rhythm and is unremarkable. 2. Chest CTA revealed no evidence of pulmonary embolism. There were small bilateral pleural effusions plus coronary artery calcification. 3. Chest x-ray revealed no acute findings. LABORATORY DATA: Hemoglobin 11.7, hematocrit 36.8, white count 5900, platelets 210,000, troponin I mildly elevated at 0.050, cholesterol 150, triglycerides 141 , LDL 73. TSH is normal, BNP 607.2. Sodium 140, potassium 4.3, chloride 106, carbon dioxide 23, BUN 16, creatinine 0.93. IMPRESSION: 1. History most compatible with acute systolic heart failure. 2. Hypertension. 3. Hypercholesterolemia, poorly controlled in a diabetic. 4. Diabetes. 5. Positive family history. 6. History of normal coronary arteries in 2002. PLAN: With suspected left ventricular dysfunction, verapamil will be discontinued. Also carvedilol would probably be a better long-term choice than the atenolol and she will be switched to that. LDL should be under 70 in a diabetic and I agree with increasing the atorvastatin from 20 to 40 mg. Further evaluation will be dependant upon echo results. Job ID: [id number] MTDNeva
[2018-07-06 05:24] LABS: #Eosinphils 0.1 thou/uL (0.0-0.7); #Lymphocytes 1.6 thou/uL (1.20-3.40); #Monocytes 0.5 thou/uL (0.11-0.59); #Neutrophils 2.9 thou/uL (1.40-6.50); %Basophils 0.2 % (0.0-1.0); %Eosinophils 2.3 % (0.0-10.0); %Lymphocytes 30.8 % (21.0-51.0); %Monocytes 10.4 % (0.0-10.0); %Neutrophils 56.2 % (42.0-75.0); Hemoglobin 13.5 g/dL (12.0-16.0); Mean Corpuscular HGB CONC 32.8 g/dL (32.0-36.0); Mean Corpuscular Hemoglobin 28.9 pg (27.0-31.0); Mean Corpuscular Volume 88.1 fL (78.0-98.0); Mean Platelet Volume 9.4 fL (7.4-10.4); Platelet Count 202 thou/uL (130-400); Red Blood Cell (RBC) Count 4.68 mill/uL (4.20-5.40); White Blood Cell (WBC) Count 5.2 thou/uL (4.8-10.8)
[2018-07-06 05:50] LABS: ALT (SGPT) 19 U/L (8-55); AST (SGOT) 18 U/L (5-34); Albumin 3.4 g/dL (3.4-4.8); Alkaline Phosphatase 133 U/L (40-150); Anion Gap 15 mmol/L (10-20); BUN (Urea Nitrogen) 22 mg/dL (9.8-20.1); Bilirubin, Total 0.6 mg/dL (0.2-1.2); Calc. Creatinine Clearance 76 mL/min (70-130); Calcium 9.2 mg/dL (7.8-10.44); Carbon Dioxide 22 mmol/L (23-31); Chloride 103 mmol/L (98-107); Estimated GFR-MDRD 66; Globulin 3.5 g/dL (2.4-3.5); Glucose 112 mg/dL (80-115); Potassium 3.8 mmol/L (3.5-5.1); Protein, Total 6.9 g/dL (6.0-8.3); Sodium 136 mmol/L (136-145)
[2018-07-06] MEDS: Furosemide 40 MG/4 ML VIAL SLOW IVP SCH ×2 (06:28→16:04)
[2018-07-06] MEDS ORDERED: Aspirin 81 mg Enteric Coated Tablet PO SCH (09:00)
[2018-07-06] MEDS ORDERED: Atenolol 25 MG TAB PO SCH (09:00)
[2018-07-06] MEDS ORDERED: Verapamil 80 MG TAB PO SCH (09:00)
[2018-07-06] MEDS ORDERED: Hydrochlorothiazide 25 MG TAB PO SCH (09:00)
[2018-07-06] MEDS: Enoxaparin Sodium 40 MG/0.4 ML SYRINGE SC SCH (09:30)
[2018-07-06] MEDS: Acetaminophen 500 MG TAB PO PRN (09:30)
[2018-07-06] MEDS: Lisinopril 5 MG TAB PO SCH (09:31)
[2018-07-06] MEDS: Bupropion 150 MG XL TAB PO SCH (09:31)
[2018-07-06] MEDS: Aspirin Chewable 81 MG TAB PO SCH (09:31)
[2018-07-06] MEDS: Carvedilol 6.25 MG TAB PO SCH ×2 (09:31→18:17)
--- NOTE | 2018-07-06 16:25 | PDOC.PN ---
- Subjective Encounter Start Date: 07/06/18 Encounter Start Time: 16:22 Subjective: pt up in bed no complains - Objective Resuscitation Status - Order Detail: 07/05/18 10:14 Resuscitation Status Routine Co-Sign Provider: Resuscitation Status: FULL: Full Resuscitation Discussed with: Patient Vital Signs & Weight: Vital Signs (12 hours) Temp Pulse Resp BP BP BP Pulse Ox 07/06/18 15:40 98.3 F 70 16 109/57 L 98 07/06/18 11:29 97.5 F L 75 16 127/64 99 07/06/18 09:39 98 07/06/18 09:31 75 136/65 07/06/18 07:38 97.8 F 75 16 136/65 98 Weight Weight 177 lb 8 oz I&O: 07/05/18 07/06/18 07/07/18 06:59 06:59 06:59 Intake Total 580 Output Total 200 Balance 580 -200 Result Diagrams: 07/06/18 04:59 07/06/18 04:59 Additional Labs: Accuchecks 07/06/18 07/06/18 07/05/18 10:37 06:08 19:39 POC Glucose 154 H 123 H 145 H 07/05/18 16:49 POC Glucose 123 H Phys Exam - Physical Examination Respiratory: no wheezing, no rales, no rhonchi, wheezing present, clear to auscultation bilateral Cardiovascular: RRR, no significant murmur, no rub, gallop, irregular Gastrointestinal: soft, non-tender, no distention, positive bowel sounds Musculoskeletal: no edema, pulses present, edema present Dx/Plan (1) Acute systolic CHF (congestive heart failure), NYHA class 2 Code(s): I50.21 - ACUTE SYSTOLIC (CONGESTIVE) HEART FAILURE Status: Acute (2) Hyperlipidemia associated with type 2 diabetes mellitus Code(s): E11.69 - TYPE 2 DIABETES MELLITUS WITH OTHER SPECIFIED COMPLICATION; E78.5 - HYPERLIPIDEMIA, UNSPECIFIED Status: Acute (3) CAD (coronary artery disease) Code(s): I25.10 - ATHSCL HEART DISEASE OF [place] CORONARY ARTERY W/O ANG PCTRS Status: Chronic Qualifiers: Coronary Disease-Associated Artery/Lesion type: [place] artery [place] vs. transplanted heart: [place] heart Associated angina: without angina Qualified Code(s): I25.10 - Atherosclerotic heart disease of [place] coronary artery without angina pectoris (4) DM2 (diabetes mellitus, type 2) Status: Chronic Qualifiers: Diabetes mellitus intermediate insulin use: without intermediate use Diabetes mellitus complication status: with neurologic complications - Plan echo pending. will change lasix to daily * . Review of Systems - Review of Systems Respiratory: negative: Cough, Dry, Shortness of Breath, Hemoptysis, SOB with Excertion, Pleuritic Pain, Sputum, Wheezing Cardiovascular: negative: chest pain, palpitations, orthopnea, paroxysmal nocturnal dyspnea, edema, light headedness, other Gastrointestinal: negative: Nausea, Vomiting, Abdominal Pain, Diarrhea, Constipation, Melena, Hematochezia, Other Genitourinary: negative: Dysuria, Frequency, Incontinence, Hematuria, Retention , Other - Medications/Allergies Allergies/Adverse Reactions: Allergies Allergy/AdvReac Type Severity Reaction Status Date / Time Sulfa (Sulfonamide Allergy Severe Verified 07/05/18 11:15 Antibiotics) Medications: Current Medications Acetaminophen (Tylenol) 1,000 mg PO Q6H PRN PRN Reason: Mild Pain (1-3) Last Admin: 07/06/18 09:30 Dose: 1,000 mg Aspirin (Aspirin Chewable) 81 mg PO DAILY [facility] Last Admin: 07/06/18 09:31 Dose: 81 mg Atorvastatin Calcium (Lipitor) 40 mg PO HS [facility] Last Admin: 07/05/18 20:08 Dose: 40 mg Benzonatate (Tessalon) 100 mg PO Q6H PRN PRN Reason: Cough Bupropion HCl (Wellbutrin Xl) 150 mg PO QAM [facility] Last Admin: 07/06/18 09:31 Dose: 150 mg Calcium Carbonate (Tums) 1,000 mg PO Q4H PRN PRN Reason: Heartburn or Indigestion Carvedilol (Coreg) 6.25 mg PO BID-[facility] Last Admin: 07/06/18 09:31 Dose: 6.25 mg Clonidine (Catapres) 0.1 mg PO Q4H PRN PRN Reason: SBP Greater Than 180 Dextrose/Water (Dextrose 50%) 25 gm SLOW IVP PRN PRN PRN Reason: Hypoglycemia Enoxaparin Sodium (Lovenox) 40 mg SC 0900 [facility] Last Admin: 07/06/18 09:30 Dose: 40 mg Furosemide (Lasix) 40 mg SLOW IVP DAILY [facility] Glipizide (Glucotrol Xl) 2.5 mg PO DAILY-[facility] Last Admin: 07/06/18 09:31 Dose: 2.5 mg Glucagon (Glucagon) 1 mg IM PRN PRN PRN Reason: Hypoglycemia Guaifenesin/Dextromethorphan (Robitussin Dm) 15 ml PO Q4H PRN PRN Reason: Cough Hydralazine HCl (Apresoline) 10 mg SLOW IVP Q4H PRN PRN Reason: SBP Greater Than 170 Hydrochlorothiazide (Hydrochlorothiazide) 25 mg PO DAILY [facility] Last Admin: 07/06/18 09:30 Dose: 25 mg Dextrose/Water (D5w) 1,000 mls @ 0 mls/hr IV .Q0M PRN PRN Reason: Hypoglycemia Insulin Human Lispro (Humalog) 0 units SC .MILD SLIDING SCALE PRN PRN Reason: Mild Correctional Scale Last Admin: 07/06/18 11:16 Dose: 2 unit Lisinopril (Zestril) 5 mg PO DAILY [facility] Last Admin: 07/06/18 09:31 Dose: 5 mg Nitroglycerin (Nitrostat) 0.4 mg SL Q5MIN PRN PRN Reason: Chest Pain Ondansetron HCl (Zofran Odt) 4 mg PO Q6H PRN PRN Reason: Nausea/Vomiting Ondansetron HCl (Zofran) 4 mg IVP Q6H PRN PRN Reason: Nausea/Vomiting
[2018-07-06] MEDS ORDERED: Communication Order-Pharmacy FS SCH (17:00)
[2018-07-06] MEDS: Atorvastatin Calcium 40 MG TAB PO SCH (20:39)
[2018-07-07] MEDS: Carvedilol 6.25 MG TAB PO SCH ×2 (04:52→17:25)
[2018-07-07] MEDS: Bupropion 150 MG XL TAB PO SCH (04:52)
[2018-07-07 05:18] LABS: #Eosinphils 0.1 thou/uL (0.0-0.7); #Lymphocytes 1.8 thou/uL (1.20-3.40); #Monocytes 0.5 thou/uL (0.11-0.59); #Neutrophils 2.1 thou/uL (1.40-6.50); %Basophils 0.5 % (0.0-1.0); %Eosinophils 2.9 % (0.0-10.0); %Lymphocytes 40.1 % (21.0-51.0); %Monocytes 10.5 % (0.0-10.0); %Neutrophils 46.2 % (42.0-75.0); Hemoglobin 13.6 g/dL (12.0-16.0); Mean Corpuscular HGB CONC 31.4 g/dL (32.0-36.0); Mean Corpuscular Hemoglobin 27.6 pg (27.0-31.0); Mean Corpuscular Volume 87.7 fL (78.0-98.0); Mean Platelet Volume 9.1 fL (7.4-10.4); Platelet Count 227 thou/uL (130-400); RBC Distribution Width 12.7 % (11.5-14.5); Red Blood Cell (RBC) Count 4.93 mill/uL (4.20-5.40); White Blood Cell (WBC) Count 4.6 thou/uL (4.8-10.8)
[2018-07-07] MEDS: Sodium Chloride 0.9% 1,000 ML IV SCH ×2 (05:30→17:39)
[2018-07-07 05:37] LABS: ALT (SGPT) 16 U/L (8-55); AST (SGOT) 12 U/L (5-34); Albumin 3.5 g/dL (3.4-4.8); Alkaline Phosphatase 149 U/L (40-150); Anion Gap 14 mmol/L (10-20); BUN (Urea Nitrogen) 27 mg/dL (9.8-20.1); Bilirubin, Total 0.6 mg/dL (0.2-1.2); Calc. Creatinine Clearance 64 mL/min (70-130); Calcium 9.3 mg/dL (7.8-10.44); Carbon Dioxide 24 mmol/L (23-31); Chloride 100 mmol/L (98-107); Estimated GFR-MDRD 55; Globulin 3.3 g/dL (2.4-3.5); Glucose 108 mg/dL (80-115); Potassium 3.5 mmol/L (3.5-5.1); Protein, Total 6.8 g/dL (6.0-8.3); Sodium 134 mmol/L (136-145)
[2018-07-07] MEDS ORDERED: Furosemide 40 MG/4 ML VIAL SLOW IVP SCH (09:00)
[2018-07-07] MEDS: Lisinopril 5 MG TAB PO SCH (09:19)
[2018-07-07] MEDS: Aspirin Chewable 81 MG TAB PO SCH (09:19)
[2018-07-07] MEDS: Enoxaparin Sodium 40 MG/0.4 ML SYRINGE SC SCH (09:19)
--- NOTE | 2018-07-07 11:23 | PDOC.PN ---
- Subjective Encounter Start Date: 07/07/18 Encounter Start Time: 11:21 Feels much improved overall. No questions about her care. - Objective Resuscitation Status - Order Detail: 07/05/18 10:14 Resuscitation Status Routine Co-Sign Provider: Resuscitation Status: FULL: Full Resuscitation Discussed with: Patient Vital Signs & Weight: Vital Signs (12 hours) Temp Pulse Resp BP BP Pulse Ox 07/07/18 09:19 68 115/62 07/07/18 08:00 98 07/07/18 07:58 97.5 F L 68 18 115/62 98 07/07/18 04:52 116/64 07/07/18 04:00 97.4 F L 74 18 116/64 96 Weight Weight 185 lb 5 oz I&O: 07/06/18 07/07/18 07/08/18 06:59 06:59 06:59 Intake Total 580 1437 Output Total 1600 Balance 580 -163 Result Diagrams: 07/07/18 05:03 07/07/18 05:03 Additional Labs: Accuchecks 07/07/18 07/07/18 07/06/18 10:38 04:50 19:25 POC Glucose 123 H 112 H 120 H 07/06/18 16:41 POC Glucose 119 H Phys Exam - Physical Examination Constitutional: NAD Respiratory: no wheezing, no rales, no rhonchi, clear to auscultation bilateral Cardiovascular: RRR, no significant murmur Gastrointestinal: soft, non-tender, no distention, positive bowel sounds Musculoskeletal: no edema Psychiatric: normal affect, A&O x 3 Dx/Plan (1) Acute systolic CHF (congestive heart failure), NYHA class 2 Code(s): I50.21 - ACUTE SYSTOLIC (CONGESTIVE) HEART FAILURE Status: Acute (2) CAD (coronary artery disease) Code(s): I25.10 - ATHSCL HEART DISEASE OF [place] CORONARY ARTERY W/O ANG PCTRS Status: Chronic Qualifiers: Coronary Disease-Associated Artery/Lesion type: [place] artery [place] vs. transplanted heart: [place] heart Associated angina: without angina Qualified Code(s): I25.10 - Atherosclerotic heart disease of [place] coronary artery without angina pectoris (3) DM2 (diabetes mellitus, type 2) Status: Chronic Qualifiers: Diabetes mellitus terminal press operator insulin use: without terminal press operator use Diabetes mellitus complication status: with neurologic complications (4) HTN (hypertension) Code(s): I10 - ESSENTIAL (PRIMARY) HYPERTENSION Status: Chronic Qualifiers: Hypertension type: essential hypertension Qualified Code(s): I10 - Essential (primary) hypertension (5) CKD (chronic kidney disease), stage III Code(s): N18.3 - CHRONIC KIDNEY DISEASE, STAGE 3 (MODERATE) Status: Acute (6) HLD (hyperlipidemia) Code(s): E78.5 - HYPERLIPIDEMIA, UNSPECIFIED Status: Acute - Plan * New CAD noted on CT chest. * In light of the acute CHF and CAD, plan is for cath tomorrow. * Will give po lasix today. * Blood sugars are well controlled. * Continue Statin. * Continue ASA. * CKD stable.
[2018-07-07] MEDS ORDERED: Furosemide 20 MG TAB PO SCH (11:30)
[2018-07-07] MEDS: Atorvastatin Calcium 40 MG TAB PO SCH (21:07)
[2018-07-08] MEDS: Sodium Chloride 0.9% 1,000 ML IV SCH (06:02)
[2018-07-08 06:44] LABS: #Eosinphils 0.1 thou/uL (0.0-0.7); #Lymphocytes 2.1 thou/uL (1.20-3.40); #Monocytes 0.5 thou/uL (0.11-0.59); #Neutrophils 1.9 thou/uL (1.40-6.50); %Basophils 0.3 % (0.0-1.0); %Eosinophils 1.8 % (0.0-10.0); %Lymphocytes 45.9 % (21.0-51.0); %Monocytes 10.8 % (0.0-10.0); %Neutrophils 41.2 % (42.0-75.0); Hemoglobin 13.5 g/dL (12.0-16.0); Mean Corpuscular HGB CONC 33.1 g/dL (32.0-36.0); Mean Corpuscular Hemoglobin 28.8 pg (27.0-31.0); Mean Corpuscular Volume 87.1 fL (78.0-98.0); Mean Platelet Volume 9.2 fL (7.4-10.4); Platelet Count 212 thou/uL (130-400); RBC Distribution Width 12.7 % (11.5-14.5); Red Blood Cell (RBC) Count 4.67 mill/uL (4.20-5.40); White Blood Cell (WBC) Count 4.6 thou/uL (4.8-10.8)
[2018-07-08 07:02] LABS: ALT (SGPT) 20 U/L (8-55); AST (SGOT) 21 U/L (5-34); Albumin 3.5 g/dL (3.4-4.8); Alkaline Phosphatase 123 U/L (40-150); Anion Gap 14 mmol/L (10-20); BUN (Urea Nitrogen) 27 mg/dL (9.8-20.1); Bilirubin, Total 0.5 mg/dL (0.2-1.2); Calc. Creatinine Clearance 67 mL/min (70-130); Calcium 9.4 mg/dL (7.8-10.44); Carbon Dioxide 25 mmol/L (23-31); Chloride 102 mmol/L (98-107); Estimated GFR-MDRD 57; Globulin 3.3 g/dL (2.4-3.5); Glucose 110 mg/dL (80-115); Potassium 3.8 mmol/L (3.5-5.1); Protein, Total 6.8 g/dL (6.0-8.3); Sodium 137 mmol/L (136-145)
[2018-07-08] MEDS ORDERED: Heparin 10,000 UNITS/1 ML VIAL ONE (08:12)
[2018-07-08] MEDS ORDERED: Midazolam HCl 2 mg/2 ml Vial ONE (08:13)
[2018-07-08] MEDS ORDERED: Fentanyl 100 MCG/2 ML VIAL ONE (08:13)
[2018-07-08] MEDS ORDERED: Protamine Sulfate 50 MG/5 ML VIAL ONE (08:42)
[2018-07-08] MEDS ORDERED: Nitroglycerin 0.4 MG TAB (25 Tab Bottle) SL PRN (09:07)
[2018-07-08] MEDS ORDERED: Sodium Chloride 0.9% 200 ML IV PRN (09:07)
[2018-07-08] MEDS ORDERED: Acetaminophen/Codeine 30-300mg Tablet PO PRN ×2 (09:07)
[2018-07-08] MEDS ORDERED: Sodium Chloride 0.9% 1,000 ML IV SCH (09:09)
[2018-07-08] MEDS ORDERED: Furosemide 20 MG TAB PO SCH (09:15)
[2018-07-08] MEDS: Carvedilol 6.25 MG TAB PO SCH ×2 (09:52→16:01)
[2018-07-08] MEDS: Aspirin Chewable 81 MG TAB PO SCH (09:52)
[2018-07-08] MEDS: Bupropion 150 MG XL TAB PO SCH (09:53)
[2018-07-08] MEDS: Acetaminophen 500 MG TAB PO PRN ×2 (10:05→22:02)
--- NOTE | 2018-07-08 10:39 | PDOC.PN ---
- Subjective Encounter Start Date: 07/08/18 Encounter Start Time: 10:37 Doing well post cath. No complaints. Ready for a tray. - Objective Resuscitation Status - Order Detail: 07/05/18 10:14 Resuscitation Status Routine Co-Sign Provider: Resuscitation Status: FULL: Full Resuscitation Discussed with: Patient Vital Signs & Weight: Vital Signs (12 hours) Temp Pulse Resp BP BP Pulse Ox 07/08/18 09:52 155/65 H 07/08/18 08:00 98 07/08/18 07:25 97.9 F 72 16 113/58 L 98 07/08/18 05:00 97.9 F 74 16 127/60 97 07/07/18 23:59 97.6 F 77 16 99/53 L 93 L Weight Weight 188 lb 1.6 oz I&O: 07/07/18 07/08/18 07/09/18 06:59 06:59 06:59 Intake Total 1437 1130 Output Total 1600 600 Balance -163 530 Result Diagrams: 07/08/18 06:13 07/08/18 06:13 Additional Labs: Accuchecks 07/08/18 07/07/18 07/07/18 06:02 20:17 16:56 POC Glucose 112 H 108 82 07/07/18 10:38 POC Glucose 123 H Phys Exam - Physical Examination Constitutional: NAD Respiratory: no wheezing, no rales, no rhonchi, clear to auscultation bilateral Cardiovascular: RRR, no significant murmur, no rub Gastrointestinal: soft, non-tender, no distention, positive bowel sounds Musculoskeletal: no edema Psychiatric: normal affect, A&O x 3 Dx/Plan (1) Acute systolic CHF (congestive heart failure), NYHA class 2 Code(s): I50.21 - ACUTE SYSTOLIC (CONGESTIVE) HEART FAILURE Status: Acute (2) CAD (coronary artery disease) Code(s): I25.10 - ATHSCL HEART DISEASE OF [place] CORONARY ARTERY W/O ANG PCTRS Status: Chronic Qualifiers: Coronary Disease-Associated Artery/Lesion type: [place] artery [place] vs. transplanted heart: [place] heart Associated angina: without angina Qualified Code(s): I25.10 - Atherosclerotic heart disease of [place] coronary artery without angina pectoris (3) DM2 (diabetes mellitus, type 2) Status: Chronic Qualifiers: Diabetes mellitus retirement insulin use: without termite technician use Diabetes mellitus complication status: with neurologic complications (4) HTN (hypertension) Code(s): I10 - ESSENTIAL (PRIMARY) HYPERTENSION Status: Chronic Qualifiers: Hypertension type: essential hypertension Qualified Code(s): I10 - Essential (primary) hypertension (5) CKD (chronic kidney disease), stage III Code(s): N18.3 - CHRONIC KIDNEY DISEASE, STAGE 3 (MODERATE) Status: Acute (6) HLD (hyperlipidemia) Code(s): E78.5 - HYPERLIPIDEMIA, UNSPECIFIED Status: Acute - Plan * Cath this morning with single vessel disease. * Plan is medical management. * CHF improved. * Consider DC later today v am. * Renal stable. Hydrated for cath. * Oral nitro added.
[2018-07-08] MEDS: Lisinopril 5 MG TAB PO SCH (11:00)
[2018-07-08] MEDS: Atorvastatin Calcium 40 MG TAB PO SCH (20:59)
[2018-07-09 07:54] VITALS: BP 139/71; TEMP 97.5
[2018-07-09 08:19] LABS: Anion Gap 11 mmol/L (10-20); BUN (Urea Nitrogen) 16 mg/dL (9.8-20.1); Calc. Creatinine Clearance 79 mL/min (70-130); Calcium 9.1 mg/dL (7.8-10.44); Carbon Dioxide 26 mmol/L (23-31); Chloride 103 mmol/L (98-107); Estimated GFR-MDRD 69; Glucose 97 mg/dL (80-115); Potassium 3.9 mmol/L (3.5-5.1); Sodium 136 mmol/L (136-145)
[2018-07-09] MEDS ORDERED: Lisinopril 2.5 MG TAB PO SCH (09:00)
[2018-07-09] MEDS ORDERED: Furosemide 20 MG TAB PO SCH (09:00)
[2018-07-09] MEDS: Bupropion 150 MG XL TAB PO SCH (09:28)
[2018-07-09] MEDS: Carvedilol 6.25 MG TAB PO SCH (09:28)
[2018-07-09] MEDS: Aspirin Chewable 81 MG TAB PO SCH (09:28)
--- NOTE | 2018-07-10 14:23 | EKG ---
Test Reason : Blood Pressure : / mmHG Vent. Rate : 063 BPM Atrial Rate : 063 BPM P-R Int : 136 ms QRS Dur : 076 ms QT Int : 444 ms P-R-T Axes : 041 001 -19 degrees QTc Int : 454 ms Normal sinus rhythm Normal ECG Confirmed by ANALISA OAKLEY [id number]), editor publications MUKUND ALLISON ([id number] on 07/10/2018 2:22:52 PM Referred By: Confirmed By:ANALISA OAKLEY
== END 2018-07-09 11:52 | disposition home or self-care (01) | DRG 286 ==
LOC: ERS 21:27 → ERHOLD 23:00 → 2SE 07-05 10:34
PROVIDERS: ADMIT Internal Medicine; ATTEND Internal Medicine
PROC: 4A023N7 Measurement of Cardiac Sampling and Pressure, Left Heart, Percutaneous Approach (ICD-10-PCS; principal; 2018-07-08)
PROC: B2151ZZ Fluoroscopy of Left Heart using Low Osmolar Contrast (ICD-10-PCS; 2018-07-08)
PROC: B2111ZZ Fluoroscopy of Multiple Coronary Arteries using Low Osmolar Contrast (ICD-10-PCS; 2018-07-08)
DX: I13.0 Hypertensive heart and chronic kidney disease with heart failure and stage 1 through stage 4 chronic kidney disease, or unspecified chronic kidney disease (principal); I50.23 Acute on chronic systolic (congestive) heart failure; N18.3 Chronic kidney disease, stage 3 (moderate); F32.9 Major depressive disorder, single episode, unspecified; I25.10 Atherosclerotic heart disease of native coronary artery without angina pectoris; E11.22 Type 2 diabetes mellitus with diabetic chronic kidney disease; E11.40 Type 2 diabetes mellitus with diabetic neuropathy, unspecified; M06.9 Rheumatoid arthritis, unspecified; I16.0 Hypertensive urgency; E11.69 Type 2 diabetes mellitus with other specified complication; E78.00 Pure hypercholesterolemia, unspecified; Z79.84 Long term (current) use of oral hypoglycemic drugs; Z88.2 Allergy status to sulfonamides; Z79.82 Long term (current) use of aspirin; Z79.899 Other long term (current) drug therapy
CPT/HCPCS: 36415; 36416; 80048; 80053; 80061; 82553; 84443; 84484; 85025; 85347; 93005; 93306; 93458; 93798; 96374; 99152; C1769; J0360; J1644; J1650; J1940; J2250; J2720; J3010

== ENCOUNTER 2018-09-15 12:30 | Outpatient (CLI) | payer MEDICARE ==
--- NOTE | 2018-09-16 11:06 | MMO ---
Bilateral MAMMO Bilat Screen DDI. CLINICAL HISTORY: Patient is 62 years old and is seen for screening. The patient has the following family history of breast cancer: maternal aunt; paternal aunt and cousin female, at age 36. The patient has no personal history of cancer. The patient has a history of left needle biopsy in 1997 - benign. VIEWS: The views performed were: bilateral craniocaudal and bilateral mediolateral oblique. FILMS COMPARED: The present examination has been compared to prior imaging studies performed at [facility] on 09/05/2014, 09/10/2015, 09/11/2016 and 09/14/2017. This study has been interpreted with the assistance of computer-aided detection. MAMMOGRAM FINDINGS: The breasts are heterogeneously dense, which could obscure a lesion on mammography. There are no suspicious masses, suspicious calcifications, or new areas of architectural distortion. IMPRESSION: THERE IS NO MAMMOGRAPHIC EVIDENCE OF MALIGNANCY. A ROUTINE FOLLOW-UP MAMMOGRAM IN 1 YEAR IS RECOMMENDED. ACR BI-RADS Category 1 - Negative MAMMOGRAPHY NOTE: 1. A negative mammogram report should not delay a biopsy if a dominant of clinically suspicious mass is present. 2. Approximately 10% to 15% of breast cancers are not detected by mammography. 3. Adenosis and dense breasts may obscure an underlying neoplasm. Reported by: UBALDO GOSS MD Electonically Signed: [id number]
== END 2018-09-15 12:31 | disposition home or self-care (01) ==
LOC: SCSMAMMO 12:30
PROVIDERS: ATTEND Family Medicine
DX: Z12.31 Encounter for screening mammogram for malignant neoplasm of breast (principal); Z80.3 Family history of malignant neoplasm of breast; Z91.89 Other specified personal risk factors, not elsewhere classified
CPT/HCPCS: 77067